=== PATIENT | female | born 1975 | race African-American/Black ===

== ENCOUNTER 2017-06-27 09:41 | Outpatient (CLI) | payer OTHER | END 2017-06-27 10:07 | disposition home or self-care (01) | LOC: RAD 09:41 | DX: Z12.31 Encounter for screening mammogram for malignant neoplasm of breast (principal); C18.9 Malignant neoplasm of colon, unspecified ==

== ENCOUNTER 2017-06-30 07:25 | Day surgery (SDC) | payer OTHER | END 2017-06-30 13:10 | disposition home or self-care (01) | LOC: AMB-ENDOS 07:25 → EDSTATUS 08:15 → AMB-ENDOS 13:10 | DX: K64.0 First degree hemorrhoids (principal) ==

== ENCOUNTER 2018-08-03 07:36 | Day surgery (SDC) | payer OTHER | END 2018-08-03 13:45 | disposition home or self-care (01) | LOC: AMB-ENDOS 07:36 → EDSTATUS 12:29 → SURG 12:29 → AMB-ENDOS 12:57 | DX: C18.7 Malignant neoplasm of sigmoid colon (principal) ==